=== PATIENT | male | born 1935 | race Caucasian/White ===

== ENCOUNTER → 2017-08-30 | Outpatient (CLI) | payer MEDICARE, BC ==
[~2017-08-30] MED LIST: ATEN25TA PO; B-122000 PO; BENA40TA PO; ECASA81 PO; FIBE500T PO; MULT10CA PO; VITA100064 PO
[2017-08-30 10:35] LABS: HEMATOCRIT 40.7 % (39.0-51.0); HEMOGLOBIN 13.8 GM/DL (13.0-17.0); MEAN CELL VOLUME 95.3 FL (80.0-100.0); MEAN CORPUSCULAR HEMOGLOBIN 32.3 PG (27.0-34.0); MEAN CORPUSCULAR HGB CONC 33.9 % (32.0-36.0); MEAN PLATELET VOLUME 8.8 FL (7.0-11.0); PLATELET COUNT 174 TH/MM3 (150-450); RED BLOOD COUNT 4.27 MIL/MM3 (4.50-5.90); RED CELL DISTRIBUTION WIDTH 13.8 % (11.6-17.2); WHITE BLOOD COUNT 4.3 TH/MM3 (4.0-11.0)
[2017-08-30 10:44] LABS: PROTHROMBIN TIME - PATIENT 10.4 SEC (9.8-11.6)
[2017-08-30 10:48] LABS: BACTERIA, URINE OCC /hpf; BILIRUBIN, URINE NEG (NEG); BLOOD, URINE NEG (NEG); GLUCOSE,URINE NEG (NEG); HYALINE CAST, URINE 8 /lpf (RARE); KETONE, URINE TRACE mg/dL (NEG); MUCUS URINE FEW /lpf (OCC); NITRITE,URINE NEG (NEG); URINE COLOR YELLOW (YELLW/STRAW); URINE LEUKOCYTE ESTERASE SMALL (NEG)
[2017-08-30 11:33] LABS: BICARBONATE 27.4 MEQ/L (21.0-32.0); CREATININE 1.01 MG/DL (0.60-1.30)
--- NOTE | 2017-08-30 19:10 | EKG ---
Date Performed: 08/30/2017 Time Performed: 09:24:05 PTAGE: 82 years EKG: THE UNDERLYING RHYTHM IS DIFFICULT TO DISCERN, SUSPECT UNDERLYING ATRIAL FIBRILLATION WITH EITHER A JUNCTIONAL ESCAPE RHYTHM WITH A LEFT BUNDLE BRANCH BLOCK OR A VENTRICULAR PACED RHYTHM THERE IS NO PRIOR TRACING TO COMPARE WITH Clinical correlation is recommended ABNORMAL ECG NO PREVIOUS TRACING DOCTOR: Eugene Rivas Interpretating Date/Time 08/30/2017 19:09:47
== END ==
LOC: CPRE 08:57
PROVIDERS: ATTEND Orthopaedic Surgery
DX: Z01.812 Encounter for preprocedural laboratory examination (principal); Z01.810 Encounter for preprocedural cardiovascular examination; M17.12 Unilateral primary osteoarthritis, left knee; M21.062 Valgus deformity, not elsewhere classified, left knee; M79.609 Pain in unspecified limb; I10 Essential (primary) hypertension; R94.31 Abnormal electrocardiogram [ECG] [EKG]
CPT/HCPCS: 36415; 80048; 81001; 85027; 85610; 85730; 93005

== ENCOUNTER 2017-09-17 07:28 | Inpatient (IN) | payer MEDICARE, BC ==
[~2017-09-17] VITALS: Ht 179.1 cm; Wt 107.9 kg
[2017-09-17] MEDS ORDERED: EXPAREL PERI-ARTICULAR INJECTION (TOTAL VOL. 100 ML) P-ARTICULR SCH ×2 (08:15)
[2017-09-17] MEDS ORDERED: CHLORHEXIDINE GLUCONATE 2 % 1 PACK (2 CLOTHS) TOPICAL PRN (08:15)
[2017-09-17] MEDS ORDERED: TRANEXAMIC ACID IV SCH ×2 (08:15→12:00)
[2017-09-17] MEDS ORDERED: LACTATED RINGER'S 1000 ML IV PRN (08:15)
[2017-09-17] MEDS ORDERED: ceFAZolin 2 GM PREMIX 50 ML IV SCH (08:15)
[2017-09-17] MEDS ORDERED: SODIUM CHLORIDE 0.9% IV SCH ×2 (08:15→12:00)
[2017-09-17] MEDS ORDERED: CHLORHEXIDINE GLUCONATE 4% SOLN 120 ML BTL TOPICAL SCH (08:15)
[2017-09-17] MEDS ORDERED: INSULIN HUMAN REGULAR 1,000 UNITS/10 ML VIAL SQ PRN (08:15)
[2017-09-17] MEDS ORDERED: SODIUM CHLORID 0.9% 500 ML IV PRN (08:15)
[2017-09-17] MEDS ORDERED: POVIDONE IODINE 5% (ANTISEPSIS KIT) 4 APPLICATIONS EACH NARE PRN (08:15)
[2017-09-17] MEDS ORDERED: METOPROLOL TARTRATE 25 MG TAB PO PRN (08:15)
[2017-09-17 08:21] VITALS: BP 146/69; RESP 20; TEMP 97.6; O2SAT 99
[2017-09-17 09:58] VITALS: PULSE 52
== END 2017-09-17 10:50 | disposition home or self-care (01) | DRG 554 ==
LOC: HSDI 07:28
PROVIDERS: ADMIT Orthopaedic Surgery; ATTEND Orthopaedic Surgery
DX: M19.90 Unspecified osteoarthritis, unspecified site (principal); I10 Essential (primary) hypertension; Z53.9 Procedure and treatment not carried out, unspecified reason; H91.90 Unspecified hearing loss, unspecified ear; F10.10 Alcohol abuse, uncomplicated; Z87.891 Personal history of nicotine dependence; Z85.828 Personal history of other malignant neoplasm of skin
CPT/HCPCS: 86850; 86900; 86901; 99211; G0463; J7120

== ENCOUNTER 2017-10-08 05:34 | Inpatient (IN) | payer MEDICARE, BC ==
[~2017-10-08] VITALS: Ht 180.3 cm; Wt 108.2 kg
[2017-10-08] MEDS: ATENOLOL 25 MG TAB PO SCH (04:30)
[2017-10-08] MEDS ORDERED: GENTAMICIN SULFATE 80 MG/2 ML VIAL ONE (05:58)
[2017-10-08] MEDS ORDERED: METOPROLOL TARTRATE 25 MG TAB PO PRN (06:00)
[2017-10-08] MEDS ORDERED: LACTATED RINGER'S 1000 ML IV PRN (06:00)
[2017-10-08] MEDS ORDERED: ceFAZolin 2 GM PREMIX 50 ML IV SCH (06:00)
[2017-10-08] MEDS ORDERED: CHLORHEXIDINE GLUCONATE 4% SOLN 120 ML BTL TOPICAL SCH (06:00)
[2017-10-08] MEDS ORDERED: CHLORHEXIDINE GLUCONATE 2 % 1 PACK (2 CLOTHS) TOPICAL PRN (06:00)
[2017-10-08] MEDS ORDERED: SODIUM CHLORID 0.9% 500 ML IV PRN (06:00)
[2017-10-08] MEDS ORDERED: POVIDONE IODINE 5% (ANTISEPSIS KIT) 4 APPLICATIONS EACH NARE PRN (06:00)
[2017-10-08] MEDS ORDERED: MIDAZOLAM HCL 2 MG/2 ML VIAL ONE ×2 (06:22→06:38)
[2017-10-08] MEDS ORDERED: ACETAMINOPHEN 1000 MG/100 ML 100 ML IV ONE (06:22)
[2017-10-08] MEDS ORDERED: fentaNYL CITRATE 250 MCG/5 ML AMP ONE (06:22)
[2017-10-08] MEDS ORDERED: FAMOTIDINE 20 MG/2 ML VIAL ONE ×2 (06:23→06:38)
[2017-10-08 06:27] LABS: AUTOMATED NEUTROPHIL # 2.3 TH/MM3 (1.8-7.7); BASOPHIL % 0.9 % (0.0-2.0); EOSINOPHIL # 0.2 TH/MM3 (0-0.4); EOSINOPHIL % 3.6 % (0.0-4.0); HEMATOCRIT 39.8 % (39.0-51.0); HEMOGLOBIN 13.6 GM/DL (13.0-17.0); LYMPH % 35.3 % (9.0-44.0); LYMPHOCYTE # 1.7 TH/MM3 (1.0-4.8); MEAN CELL VOLUME 97.4 FL (80.0-100.0); MEAN CORPUSCULAR HEMOGLOBIN 33.1 PG (27.0-34.0); MEAN PLATELET VOLUME 8.3 FL (7.0-11.0); MONO % 10.9 % (0.0-8.0); MONOCYTE # 0.5 TH/MM3 (0-0.9); NEUT % 49.3 % (16.0-70.0); PLATELET COUNT 185 TH/MM3 (150-450); RED BLOOD COUNT 4.09 MIL/MM3 (4.50-5.90); RED CELL DISTRIBUTION WIDTH 14.3 % (11.6-17.2); WHITE BLOOD COUNT 4.7 TH/MM3 (4.0-11.0)
[2017-10-08 06:27] LABS: BILIRUBIN, URINE NEG (NEG); BLOOD, URINE NEG (NEG); GLUCOSE,URINE NEG (NEG); KETONE, URINE NEG (NEG); NITRITE,URINE NEG (NEG); PH, URINE 5.5 (5.0-8.5); URINE COLOR YELLOW (YELLW/STRAW); URINE LEUKOCYTE ESTERASE MOD (NEG)
[2017-10-08] MEDS ORDERED: TETRACAINE PF 1% INJ 2 ML AMP ONE (06:32)
[2017-10-08] MEDS ORDERED: GENTAMICIN 80 MG PREMIX 100 ML ONE (06:37)
[2017-10-08] MEDS ORDERED: PROPOFOL 500 MG/50 ML INJ 50 ML ONE (06:44)
[2017-10-08] MEDS ORDERED: FAMOTIDINE 20 MG/2 ML VIAL IV ONE (06:45)
[2017-10-08] MEDS ORDERED: MIDAZOLAM HCL 2 MG/2 ML VIAL IV ONE (06:45)
[2017-10-08] MEDS ORDERED: GENTAMICIN/SOD CHL 80 MG/100 ML IV ONE (06:45)
[2017-10-08] MEDS: LACTATED RINGER'S 1000 ML INJ 1,000 ML IV SCH ×2 (06:57→20:18)
[2017-10-08] MEDS ORDERED: TRANEXAMIC ACID INJ 0 MG in SODIUM CHLORIDE 0.9% INJ 100 ML IV SCH (07:00)
[2017-10-08] MEDS ORDERED: ACETAMINOPHEN/HYDROcodone 325 MG/7.5 MG TAB PO PRN (07:00)
[2017-10-08] MEDS ORDERED: MORPHINE SULFATE 2 MG/ML INJ IV PUSH PRN (07:00)
[2017-10-08] MEDS ORDERED: EXPAREL PERI-ARTICULAR INJECTION (TOTAL VOL. 100 ML) P-ARTICULR SCH ×2 (07:00)
[2017-10-08] MEDS ORDERED: ONDANSETRON HCL 4 MG/2 ML VIAL IVP PRN (07:00)
[2017-10-08] MEDS ORDERED: ZOLPIDEM TARTRATE 5 MG TAB PO PRN (07:00)
[2017-10-08] MEDS ORDERED: METHYLCELLULOSE PO PRN (07:00)
[2017-10-08] MEDS ORDERED: MAGNESIUM HYDROXIDE SUSP 30 ML CUP PO PRN (07:00)
[2017-10-08] MEDS ORDERED: ECASA81 PO (07:01)
--- NOTE | 2017-10-08 07:05 | HHI.FF ---
Face to Face Verification Diagnosis: (1) Status post total left knee replacement Physical Therapy Gait training Knee: Total knee, Protocol: Left, Gait training, Full weight bearing Left LE Weight Bearing: WB as tolerated Left LE Range of Motion: Active ROM (AROM, AAROM, PROM. ROM goal is 0-135. Range of motion in the operating room was 0 extension to 145 of flexion.) Nursing Nursing: Dressing changes Dressing Changes: Daily dressing change, Coverderm/Primapore Additional Instructions Dressing changes begin on postop day 7. Remove steristrips on postop day 14. I have seen patient Hiram Jo on 10/08/17. My clinical findings support the need for the requested home health care services because: Ltd mobility - disease progression Limited ability to care for self High risk of falls I certify that my clinical findings support that this patient is homebound because: Post-op weakness Unsteady gait/balance Unsafe to leave home unassisted Alexandr Cisneros MD ([place]) Oct 08, 2017 07:05
[2017-10-08] MEDS: TRANEXAMIC ACID INJ 1,082 MG in SODIUM CHLORIDE 0.9% INJ 100 ML IV SCH ×2 (07:47→07:48)
[2017-10-08] MEDS: CHOLECALCIFEROL (VIT D3) 1000 UNIT TAB PO SCH (09:00)
[2017-10-08] MEDS: CYANOCOBALAMIN 1,000 MCG TAB PO SCH (09:00)
[2017-10-08] MEDS ORDERED: [UNRECOGNIZED DRUG - OTHER] PO SCH (09:00)
--- NOTE | 2017-10-08 09:02 | PD.OP ---
Operative Report Date of Surgery: Oct 08, 2017 Preoperative Diagnosis: (1) Primary osteoarthritis of left knee Postoperative Diagnosis: (1) Primary osteoarthritis of left knee Procedure: Left total knee arthroplasty with [place] Triathlon prosthesis (uncemented) Anesthesia: Spinal with supplemental adductor canal block regional and local with bupivacaine liposomal Surgeon: Jono Cisneros M.D. Documentation Improvement Specialist(s): DENZEL Santiago Operation and Findings: Indications and Findings: This 82-year-old man has had long-standing arthritis in his left knee nonresponsive to conservative measures as detailed in the history and physical examination. He has limited ambulation tolerance. He has crepitation on range of motion. He has a genu valgum deformity. X-rays show loss of articular cartilage to bone on bone in the lateral compartment with osteophytes medially, laterally and in the patellofemoral compartment. Operative findings: There was severe osteoarthritis in the left knee with loss of articular cartilage to exposed subchondral bone with subchondral sclerosis on the lateral side with osteophytes medially, laterally and in the patellofemoral compartment. There was also some exposed subchondral bone in the medial compartment. The prosthesis used was a [place]ell Triathlon prosthesis. The femur was a size 7, cruciate retaining, uncemented. The tibial baseplate was a size 8 Tritanium with a 9 mm X3 polyethylene cruciate retaining spacer. The patella was a size 38 mm asymmetric Tritanium backed. The patient was brought to the clean-air operating suite after an adductor canal block regional had been performed. A spinal anesthetic was administered. The position was supine with a small bolster under the hip on the operative side. A pneumatic tourniquet was applied to the upper thigh. The lower extremity was then prepped with alcohol, Hibiclens and ChloraPrep and draped in the usual manner with the knee draped free. An appropriate timeout procedure was carried out. An incision was made from about 3 fingerbreadths above the superior medial pole of patella down the tibial tubercle on the medial side. The incision was deepened through the subcutaneous tissue to the retinacular structures which were exposed medially and laterally. A medial retinacular incision was then made from the superior middle pole of patella down the tibial tubercle and up into the quadriceps tendon splitting it longitudinally and the medial one third. The patella was reflected. The infrapatellar fat pad was debulked. The anterior cruciate ligament was excised. Medial and lateral meniscectomies were initiated. A fenestration was made in the distal femur for the intramedullary referencing guide. A fenestration was made in the proximal tibia for the intramedullary referencing guide. The distal femoral cutting guide and jig were then assembled for a 5, 8 mm cut. When this was in position, the cutting block was stabilized with pins. The jig was removed. The distal femoral cut was then completed with the oscillating saw. The sizing guide was then positioned in place along Whitesides line and the epicondylar axis and stabilized with pins. The femoral size was then determined with the sizing guide. The 4-in-1 cutting block was then positioned in place. Anterior and posterior cuts were made followed by posterior and anterior chamfer cuts taking care to prevent injury to ligamentous structures. Osteophytes were then trimmed from the distal femur. A bone plug was then placed into the fenestration of the distal femur. The proximal tibia was then exposed. The medial and lateral meniscectomies were completed. The proximal tibial cutting guide was then positioned in place and stabilized with a pin for rotation. The depth of cut was then verified with a stylus referencing from the predetermined side. The cutting block was stabilized with pins. The jig was removed. The depth of cut was then verified and adjusted appropriately with the use of the spacer block. The proximal tibial cut was then made with the oscillating saw taking care to prevent injury to neurovascular and ligamentous structures. Proximal tibial bone was removed. Local anesthetic was administered with Exparel in the posterior capsule. The tibial baseplate trial was then positioned in place. After verifying the appropriate size, the base plate trial was positioned in place along with its spacer. The trial femoral component was then impacted into place. The alignment was checked. The trial tibial baseplate was then pinned in place on the tibia. Attention was directed to the patella. The patella drill guide was positioned in place for the appropriate sized patella. Patellar drilling was then carried out. The trial patella was positioned in place. A lateral release was carried out from within the knee. This centralized the patella. The knee was taken through a range of motion which was easily 0 extension to 145. The patella trial was removed. The femoral drill holes were made. The femoral trial prosthesis was removed. The tibial spacer was removed. A bone plug was placed into the proximal tibia. The tibial punch was impacted through the proximal tibial punch guide. This was all removed followed by placement of the tibial drill guide. The tibial drill holes were then made. The guide was removed. The cut ends of bone were then cleaned with pulse lavage. The tibial baseplate was then impacted into place and seated appropriately. The spacer was inserted. The the femoral component was then impacted into place and seated appropriately. The patella component was then seated with the patellar vice and tightened appropriately. The knee was taken through a range of motion which was comparable to the previous range of motion with excellent stability in flexion and extension and appropriate patellofemoral tracking. The remainder of the Exparel was then injected throughout the knee as a local anesthetic. Drains were brought out the superior lateral aspect of the suprapatellar pouch. Wound closure then commenced using 0 Vicryl interrupted [id number] sutures for the capsular and fascial structures, 2-0 Vicryl interrupted simple sutures with buried knots for the subcutaneous tissues and 4- 0 Monocryl, tenuous subcuticular closure for the skin. The wound was then dressed with Steri-Strips followed by Optifoam silver impregnated dressing. Sterile soft roll with a cooling pad and Juan bandage from the base of the toes to mid thigh were then applied. Patient was then transferred from the operating room to the recovery room in satisfactory condition having tolerated procedure well. Counts are correct. Specimens: None. Estimated blood loss: 350 mL Alexandr Cisneros MD ([place]) Oct 08, 2017 09:02
[2017-10-08] MEDS ORDERED: HYDR-3580 PO (09:13)
[2017-10-08] MEDS ORDERED: Post-op Orders (for Pharmacy) XX ONE (09:30)
[2017-10-08] MEDS ORDERED: DO NOT ADM ANY ANTICOAGULANT DRUGS PRN (09:30)
[2017-10-08] MEDS ORDERED: TRANEXAMIC ACID INJ 1,082 MG in SODIUM CHLORIDE 0.9% INJ 100 ML IV SCH (10:00)
[2017-10-08] MEDS: KETOROLAC TROMETHAMINE 30 MG/ML (IVP) VIAL IVP SCH ×3 (10:00→21:50)
[2017-10-08] MEDS ORDERED: *morphine SULFATE 10 MG/ML PERIprocedure ONLY ONE (10:01)
--- NOTE | 2017-10-08 10:11 | RADRPT ---
EXAM DATE/TIME: 10/08/2017 09:39 [place] COMPARISON: No previous studies available for comparison. INDICATIONS : Post op left total knee. MEDICAL HISTORY : None. SURGICAL HISTORY : None. ENCOUNTER: Initial ACUITY: 1 day PAIN SCORE: 1/10 LOCATION: Left Knee FINDINGS: Two view examination of the left knee demonstrates postoperative left total knee replacement. Drain i n the soft tissues. Normal alignment. CONCLUSION: 1. Postoperative left total knee replacement. No complications identified. Moi Das MD on October 08, 2017 at 10:08 Board Certified Radiologist. This report was verified electronically.
[2017-10-08] MEDS ORDERED: PROPOFOL 200 MG/20 ML AMP IV ONE (12:00)
[2017-10-08] MEDS ORDERED: DEXAMETHASONE SOD PHOS 4 MG/ML VIAL IV ONE (12:00)
[2017-10-08] MEDS ORDERED: ePHEDrine/NS 25 MG/5 ML SYRINGE IV ONE (12:00)
[2017-10-08] MEDS ORDERED: LIDOCAINE HCL 1% PF 5 ML SYRINGE OTHER ONE (12:00)
[2017-10-08 14:35] VITALS: BP 146/64; PULSE 82; RESP 18; TEMP 96.7; O2SAT 99
--- NOTE | 2017-10-08 15:27 | PD.CONS ---
HPI Service [facility] Hospitalists Consult Requested By Dr. Cisneros Reason for Consult Medical Management Primary Care Physician Unknown Diagnoses: (1) Hypertension (2) Primary osteoarthritis of left knee (3) Status post total left knee replacement History of Present Illness 82-year-old male with history of hypertension, remote A. fib in , osteoarthritis, macular degeneration, presents with elective left total knee arthroplasty done by orthopedic surgeon Dr. Cisneros. Hospitalists consulted for medical management. The patient is seen postoperatively with family at bedside. He is awake, alert, oriented 4. He denies any current medical complaints. Left leg currently with nerve block, therefore denies any significant pain. He is tolerating oral intake without any nausea/vomiting. Reports history of high blood pressure on benazepril. He also reports a remote history of atrial fibrillation back in , takes atenolol and baby aspirin daily. His telegraphic typewriter operator is Dr. Babb. He denies any current fevers/chills, cough , congestion, headache, lightheadedness, dizziness, chest pain, shortness of breath, abdominal pain, nausea/vomiting, or diarrhea. Last BM this morning . Review of Systems Except as stated in HPI: all other systems reviewed are Neg Past Family Social History Allergies: Coded Allergies: No Known Allergies (Unverified , 09/17/17) Past Medical History hypertension remote A. fib in osteoarthritis macular degeneration Past Surgical History Left TKA 10/08/[address] Cisneros Bilateral cataract resection with lens replacement Appendectomy Left arm fracture repair Left leg fracture repair Right carpal tunnel surgery Reported Medications Aspirin DR (Aspirin) 81 Mg Tabdr 81 Mg PO DAILY Fiber Therapy (Methylcellulose) 500 Mg Tab 2 Tab PO TID PRN Preservision Areds 2 Softgel (Vit C/E/Zn/Coppr/Lutein/Zeaxan) 250-200-40 Capsule 250 Cap PO BID Vitamin D3 (Cholecalciferol) 1,000 Unit Tab 1,000 Units PO DAILY B-12 (Cyanocobalamin) 2,000 Mcg Tab 2,000 Mcg PO DAILY Benazepril (Benazepril HCl) 40 Mg Tab 40 Mg PO HS Atenolol 25 Mg Tab 25 Mg PO DAILY Active Ordered Medications Current Medications Medications (Trade) Dose Ordered Sig/Elsy Route Start Time Stop Time Status Last Admin (Hibiclens 4% Top Soln) 1 applic ONCE TOPICAL 10/08/17 06:00 10/11/17 05:59 10/08/17 06:00 Cefazolin Sodium/ Dextrose 50 ml @ 100 mls/hr FIXED CAPITAL CLERK IV 10/08/17 06:00 10/09/17 05:59 10/08/17 07:45 Tranexamic Acid 1082 mg/Sodium Chloride 110.82 ml @ 200 mls/ hr ONCE IV 10/08/17 10:00 10/08/17 16:00 10/08/17 10:34 (Tenormin) 25 mg DAILY PO 10/08/17 09:00 10/08/17 04:30 (Vitamin D3) 1,000 units DAILY PO 10/08/17 09:00 (Vitamin B12) 2,000 mcg DAILY PO 10/08/17 09:00 (Prinivil) 40 mg HS PO 10/08/17 21:00 Lactated Ringer's 1,000 ml @ 80 mls/hr [id number] IV 10/08/17 06:57 10/08/17 06:57 Cefazolin Sodium 1000 mg/Sodium Chloride 100 ml @ 200 mls/hr Q6H IV 10/08/17 14:00 10/09/17 02:29 10/08/17 14:40 (Morphine Inj) 4 mg Q3H PRN IV PUSH 10/08/17 07:00 ([place] 7.5-325 Mg) 1 tab Q4H PRN PO 10/08/17 07:00 ([place] 7.5-325 Mg) 2 tab Q4H PRN PO 10/08/17 07:00 (Toradol Inj) 15 mg Q6H IVP 10/08/17 10:00 10/10/17 04:01 10/08/17 13:13 (Zofran Inj) 4 mg Q6H PRN IVP 10/08/17 07:00 (Colace) 100 mg BID PO 10/09/17 21:00 (Ambien) 5 mg HS PRN PO 10/08/17 07:00 (Milk Of Magnesia Liq) 30 ml DAILY PRN PO 10/08/17 07:00 (Ecotrin Ec) 81 mg BID PO 10/09/17 08:00 Miscellaneous Information ALL NURSING DEPARTME... UNSCH PRN .XX 10/08/17 09:30 10/09/17 09:29 Family History Patient was recently informed that he was adopted and therefore does not have any biological family history Social History Previously smoked tobacco, approximately one PPD or more, quit in 1980s Occasional alcohol use, has a few liquor beverages once a week Denies any illicit drug use Physical Exam Vital Signs Vital Signs Date Time Temp Pulse Resp B/P (MAP) Pulse Ox O2 Delivery O2 Flow Rate FiO2 10/08/17 14:35 96.7 82 18 146/64 (91) 99 10/08/17 13:00 98.0 54 16 128/64 (85) 99 10/08/17 11:00 53 12 135/71 (92) 98 Room Air 10/08/17 10:45 53 12 135/71 (92) 98 Room Air 10/08/17 10:30 53 12 134/64 (87) 100 Room Air 10/08/17 10:15 53 14 141/69 (93) 100 Room Air 10/08/17 10:00 50 12 140/70 (93) 100 Room Air 10/08/17 09:45 50 12 144/68 (93) 100 Simple Mask 6 10/08/17 09:30 52 12 136/65 (88) 100 Simple Mask 6 10/08/17 09:23 97.7 50 12 130/81 (97) 100 10/08/17 06:15 99 Nasal Cannula 2 10/08/17 06:13 98.0 50 20 153/77 (102) 100 Physical Exam GENERAL: Well-nourished, well-developed pleasant elderly male patient in [facility]. SKIN: Warm and dry. No rash. HEAD: Normocephalic. Atraumatic. EYES: Pupils equal and round. No scleral icterus. No injection or drainage. ENT: No nasal bleeding or discharge. Mucous membranes pink and moist. NECK: Supple. Trachea midline. CARDIOVASCULAR: Regular rate and rhythm. No murmur appreciated. RESPIRATORY: No accessory muscle use. Clear to auscultation. Breath sounds equal bilaterally. GASTROINTESTINAL: Abdomen soft, non-tender, nondistended. Normoactive bowel sounds x4. MUSCULOSKELETAL: No obvious deformities. LLE in and surgical dressing/Juan wrap , CDI. DP pulses 2+ bilaterally. NEUROLOGICAL: Awake and alert. No obvious cranial nerve deficits. Motor grossly within normal limits. Normal speech. PSYCHIATRIC: Appropriate mood and affect; insight and judgment normal. Laboratory Laboratory Tests Test 10/08/17 05:57 10/08/17 06:03 Urine Color YELLOW Urine Turbidity CLEAR Urine pH 5.5 Urine Specific K[place] 1.019 Urine Protein NEG Urine Glucose (UA) NEG Urine Ketones NEG Urine Occult Blood NEG Urine Nitrite NEG Urine Bilirubin NEG Urine Urobilinogen LESS THAN 2.0 Urine Leukocyte Esterase MOD Urine WBC 14 Microscopic Urinalysis Comment CULTURE INDICATED White Blood Count 4.7 Red Blood Count 4.09 Hemoglobin 13.6 Hematocrit 39.8 Mean Corpuscular Volume 97.4 Mean Corpuscular Hemoglobin 33.1 Mean Corpuscular Hemoglobin Concent 34.0 Red Cell Distribution Width 14.3 Platelet Count 185 Mean Platelet Volume 8.3 Neutrophils (%) (Auto) 49.3 Lymphocytes (%) (Auto) 35.3 Monocytes (%) (Auto) 10.9 Eosinophils (%) (Auto) 3.6 Basophils (%) (Auto) 0.9 Neutrophils # (Auto) 2.3 Lymphocytes # (Auto) 1.7 Monocytes # (Auto) 0.5 Eosinophils # (Auto) 0.2 Basophils # (Auto) 0.0 CBC Comment DIFF FINAL Differential Comment Date/Time Source Procedure Growth Status 10/08/17 05:57 Urine Clean Catch Urine Culture Pending Received Result Diagram: 10/08/17 0603 Imaging Last Impressions Knee X-Ray 10/08/17 0657 Signed Impressions: Service Date/Time: Sunday, October 08, 2017 09:39 - CONCLUSION: 1. Postoperative left total knee replacement. No complications identified. Moi Das MD Assessment and Plan Problem List: (1) Hypertension ICD Code: I10 - Essential (primary) hypertension (2) Primary osteoarthritis of left knee ICD Code: M17.12 - Unilateral primary osteoarthritis, left knee (3) Status post total left knee replacement ICD Code: Z96.652 - Presence of left artificial knee joint Assessment and Plan 82-year-old male with history of hypertension, remote A. fib in , osteoarthritis, macular degeneration, presents with elective left total knee arthroplasty done by orthopedic surgeon Dr. Cisneros. Hospitalists consulted for medical management. Osteoarthritis s/p Left TKA: on 10/08. Orthopedic surgeon Dr. Cisneros -continue pain control per ortho with [place] prn, IV dilaudid prn -continue IV toradol per ortho -PT/OT eval -on aspirin 81mg bid per ortho Hypertension: BP fairly well controlled -continue patient's benazepril 40mg daily (converted to lisinopril) -monitor BP, adjust antihypertensives as needed Remote Afib: patient reports remote hx of afib back in . HR well controlled. Follows with Dr. Babb as outpatient. -continue patient's atenolol and aspirin DVT Prophylaxis: per ortho, on aspirin 81mg bid Discussed Condition With Patient, Patient's Family at bedside Yoselin Santos PA-C Oct 08, 2017 3:27 pm
[2017-10-08 16:00] VITALS: BP 117/79; PULSE 80; RESP 18; TEMP 97.1; O2SAT 98
[2017-10-08 20:06] VITALS: BP 138/73; PULSE 73; RESP 18; TEMP 97.2; O2SAT 95
[2017-10-08] MEDS ORDERED: LISINOPRIL 20 MG TAB PO SCH (21:00)
[2017-10-08] MEDS: ACETAMINOPHEN/HYDROcodone 325 MG/7.5 MG TAB PO PRN (22:42)
[2017-10-09 00:38] VITALS: BP 112/59; PULSE 63; RESP 18; TEMP 96.8; O2SAT 96
[2017-10-09 04:10] VITALS: BP 112/55; PULSE 51; RESP 17; TEMP 96.9; O2SAT 93
[2017-10-09] MEDS: KETOROLAC TROMETHAMINE 30 MG/ML (IVP) VIAL IVP SCH ×2 (04:18→10:56)
--- NOTE | 2017-10-09 06:52 | PD.ORT.PN ---
Subjective Post Op Day #: 1 Subjective Remarks He is doing well. He has no pain. He has been walking in the room. He is anxious to go home. Range of Motion 0-95. Distance Walked 60 feet with physical therapy. Objective Vitals Vital Signs Date Time Temp Pulse Resp B/P (MAP) Pulse Ox O2 Delivery O2 Flow Rate FiO2 10/09/17 04:10 96.9 51 17 112/55 (74) 93 10/09/17 00:38 96.8 63 18 112/59 (76) 96 10/08/17 20:06 97.2 73 18 138/73 (94) 95 10/08/17 16:00 97.1 80 18 117/79 (92) 98 10/08/17 14:35 96.7 82 18 146/64 (91) 99 10/08/17 13:00 98.0 54 16 128/64 (85) 99 10/08/17 11:00 53 12 135/71 (92) 98 Room Air 10/08/17 10:45 53 12 135/71 (92) 98 Room Air 10/08/17 10:30 53 12 134/64 (87) 100 Room Air 10/08/17 10:15 53 14 141/69 (93) 100 Room Air 10/08/17 10:00 50 12 140/70 (93) 100 Room Air 10/08/17 09:45 50 12 144/68 (93) 100 Simple Mask 6 10/08/17 09:30 52 12 136/65 (88) 100 Simple Mask 6 10/08/17 09:23 97.7 50 12 130/81 (97) 100 I/O 10/08/17 10/08/17 10/08/17 10/09/17 10/09/17 10/09/17 07:00 15:00 23:00 07:00 15:00 23:00 Intake Total 1390 ml 1143 ml 684 ml Output Total 480 ml 120 ml 45 ml Balance 910 ml 1023 ml 639 ml Intake Oral 240 ml 360 ml IV Total 1150 ml 783 ml 684 ml Output Urine Total 0 ml Drainage Total 130 ml 120 ml 45 ml Estimated Blood Loss 350 ml # Voids 2 # Bowel Movements 0 Result Diagram: 10/08/17 0603 Imaging Last 24 hours Impressions Knee X-Ray 10/08/17 0657 Signed Impressions: Service Date/Time: Sunday, October 08, 2017 09:39 - CONCLUSION: 1. Postoperative left total knee replacement. No complications identified. Moi Das MD Objective Remarks He is resting comfortably, supine in bed. The neurovascular status is intact. The dressing is dry and intact. Assessment & Plan Ortho Post Op Day #: 1 Problem List: (1) Status post total left knee replacement ICD Codes: Z96.652 - Presence of left artificial knee joint Plan: Continue postop care and PT. Assessment and Plan Condition: Good. Orthopedically stable. DVT prophylaxis: Sequentials, JEFFERSON stockings, aspirin 81 mg twice daily. Discharge plans: Home with home health care. An appointment was scheduled through the office. Prescriptions: [place] 7.5/325 Alexandr Cisneros MD (Charles) Oct 09, 2017 06:52
[2017-10-09 06:56] LABS: HEMATOCRIT 31.3 % (39.0-51.0); HEMOGLOBIN 10.6 GM/DL (13.0-17.0)
--- NOTE | 2017-10-09 07:26 | HHI.DS ---
Discharge Summary Admission Date Oct 08, 2017 at 05:34 Discharge Date: Oct 09, 2017 Admitting Diagnosis Primary osteoarthritis, left knee. Diagnosis: (1) Status post total left knee replacement Diagnosis: Principal ICD Codes: Z96.652 - Presence of left artificial knee joint (2) Primary osteoarthritis of left knee Diagnosis: Principal ICD Codes: M17.12 - Unilateral primary osteoarthritis, left knee Status: Resolved Procedures Left total knee arthroplasty with [place] Triathlon prosthesis (uncemented). Brief History This is a 82 year old male patient has had at least 2 years of progressively worsening left knee pain that gives him trouble with stairs and limits his ambulation. It also interferes with activities of daily living. Physical findings at time of admission showed palpable osteophytes in the left knee with genu valgum and lateral laxity in the knee. There is crepitation on range of motion. X-rays prior to admission showed severe osteoarthritis with loss of joint space to [id number] in the lateral compartment, subchondral sclerosis and osteophytes. CBC/BMP: 10/09/17 0620 Significant Findings Laboratory Tests Test 10/08/17 05:57 10/08/17 06:03 10/09/17 06:20 Urine Leukocyte Esterase MOD (NEG) Urine WBC 14 /hpf (0-5) Red Blood Count 4.09 MIL/MM3 (4.50-5.90) Monocytes (%) (Auto) 10.9 % (0.0-8.0) Hemoglobin 10.6 GM/DL (13.0-17.0) Hematocrit 31.3 % (39.0-51.0) PE at Discharge He is resting comfortably, supine in bed. The neurovascular status is intact. The dressing is dry and intact. Hospital Course The patient was admitted as noted above. The above noted operative procedure was carried out that day. Preoperatively prophylactic antibiotics were administered Ancef according to protocol. These were continued postoperatively. The patient also received tranexamic acid to help with hemostasis according to protocol. In the postanesthesia care unit a continuous passive motion device was initiated. Also initiated were mechanical methods of DVT prophylaxis in the form of JEFFERSON stockings and sequentials. Physical therapy was initiated on the day of surgery. He was able to walk 60 feet and had a range of motion of 0 extension to 95 of flexion. On postoperative day #1 physical therapy continued. The use of the continuous passive motion device continued. DVT prophylaxis with aspirin 81 mg twice daily was initiated at this time. The patient continued physical therapy throughout the hospitalization. The distance walked and range of motion improved throughout the hospitalization. The patient was discharged on postoperative day 1 with the disposition being to home with home health care. An appointment for follow-up was made prior to admission. Pt Condition on Discharge: Good Discharge Disposition: Disch w/ Home Health Serv Discharge Instructions Diet Instructions: As Tolerated, No Restrictions Activities You Can Perform: Full Weight Bearing, Shower Only-No Bath Activities to Avoid: Lifting/Bending, Strenuous Activity, Bathing, Driving Follow up Referrals: Orthopedics with Alexandr Cisneros MD ([place]) New Medications: Aspirin (Aspirin ) 81 Mg Tabdr 81 MG PO BID for Prevent Blood Clot for 30 Days, #60 TAB Hydrocodone/Acetaminophen (Hydrocodone-Acetamin 7.5-325) 7.5 Mg-325 Mg Tablet 1 TAB PO Q4H PRN for PAIN LESS THAN 5 ON SCALE, #30 TAB Continued Medications: Atenolol (Atenolol) 25 Mg Tab 25 MG PO DAILY for Blood Pressure Management, #30 TAB Benazepril (Benazepril) 40 Mg Tab 40 MG PO HS for Blood Pressure Management, #30 TAB 0 Refills Cholecalciferol (Vitamin D3) 1,000 Unit Tab 1000 UNITS PO DAILY for Nutritional Supplement, #1 BOTTLE 0 Refills Cyanocobalamin (B-12) 2,000 Mcg Tab 2000 MCG PO DAILY for Nutritional Supplement, #1 BOTTLE 0 Refills Methylcellulose (Fiber Therapy) 500 Mg Tab 2 TAB PO TID PRN for Prevent Constipation, #90 TAB 0 Refills Vit C/E/Zn/Coppr/Lutein/Zeaxan (Preservision Areds 2 Softgel) 250-200-40 Capsule 250 CAP PO BID Discontinued Medications: Aspirin (Aspirin ) 81 Mg Tabdr 81 MG PO DAILY, TAB 0 Refills Alexandr Cisneros MD ([place]) Oct 09, 2017 07:26
[2017-10-09 07:56] VITALS: BP 126/63; PULSE 54; RESP 19; TEMP 97; O2SAT 97
[2017-10-09] MEDS: LACTATED RINGER'S 1000 ML INJ 1,000 ML IV SCH (07:57)
[2017-10-09] MEDS ORDERED: ASPIRIN EC 81 MG TABEC PO SCH (08:00)
[2017-10-09] MEDS: CYANOCOBALAMIN 1,000 MCG TAB PO SCH (08:07)
[2017-10-09] MEDS: ATENOLOL 25 MG TAB PO SCH (08:08)
[2017-10-09] MEDS: CHOLECALCIFEROL (VIT D3) 1000 UNIT TAB PO SCH (08:11)
--- NOTE | 2017-10-09 08:23 | HHI.PR ---
Subjective Remarks Follow up for left TKA, HTN. The patient reports feeling well today, pain well controlled. Seen ambulating to the restroom with a walker. Denies any lightheadedness, dizziness, chest pain, palpitations or shortness of breath. Discussed his abnormal urinalysis, he denies any urinary complaints including no dysuria, increased urinary frequency/urgency, or suprapubic/flank pain. Denies fevers/chills. He wants to go home. Objective Vitals Vital Signs Date Time Temp Pulse Resp B/P (MAP) Pulse Ox O2 Delivery O2 Flow Rate FiO2 10/09/17 07:56 97.0 54 19 126/63 (84) 97 10/09/17 04:10 96.9 51 17 112/55 (74) 93 10/09/17 00:38 96.8 63 18 112/59 (76) 96 10/08/17 20:06 97.2 73 18 138/73 (94) 95 10/08/17 16:00 97.1 80 18 117/79 (92) 98 10/08/17 14:35 96.7 82 18 146/64 (91) 99 10/08/17 13:00 98.0 54 16 128/64 (85) 99 10/08/17 11:00 53 12 135/71 (92) 98 Room Air 10/08/17 10:45 53 12 135/71 (92) 98 Room Air 10/08/17 10:30 53 12 134/64 (87) 100 Room Air 10/08/17 10:15 53 14 141/69 (93) 100 Room Air 10/08/17 10:00 50 12 140/70 (93) 100 Room Air 10/08/17 09:45 50 12 144/68 (93) 100 Simple Mask 6 10/08/17 09:30 52 12 136/65 (88) 100 Simple Mask 6 10/08/17 09:23 97.7 50 12 130/81 (97) 100 I/O 10/08/17 10/08/17 10/08/17 10/09/17 10/09/17 10/09/17 07:00 15:00 23:00 07:00 15:00 23:00 Intake Total 1390 ml 1143 ml 924 ml Output Total 480 ml 120 ml 45 ml Balance 910 ml 1023 ml 879 ml Intake Oral 240 ml 360 ml 240 ml IV Total 1150 ml 783 ml 684 ml Output Urine Total 0 ml Drainage Total 130 ml 120 ml 45 ml Estimated Blood Loss 350 ml # Voids 2 1 # Bowel Movements 0 0 Result Diagram: 10/09/17 0620 Imaging Last Impressions Knee X-Ray 10/08/17 0657 Signed Impressions: Service Date/Time: Sunday, October 08, 2017 09:39 - CONCLUSION: 1. Postoperative left total knee replacement. No complications identified. Moi Das MD Objective Remarks GENERAL: Well-nourished, well-developed pleasant elderly male patient in [facility]. SKIN: Warm and dry. HEENT: Normocephalic. Atraumatic. Pupils equal and round. Mucous membranes pink and moist. CARDIOVASCULAR: Regular rate and rhythm. No murmur appreciated. RESPIRATORY: No accessory muscle use. Clear to auscultation. Breath sounds equal bilaterally. GASTROINTESTINAL: Abdomen soft, non-tender, nondistended. Normoactive bowel sounds x4. MUSCULOSKELETAL: No obvious deformities. LLE in surgical dressing/Juan wrap, CDI , hemovac in place. DP pulses 2+ bilaterally. NEUROLOGICAL: Awake and alert. No obvious cranial nerve deficits. Motor grossly within normal limits. Normal speech. PSYCHIATRIC: Appropriate mood and affect; insight and judgment normal. Procedures s/p Left TKA on 10/08. Orthopedic surgeon Dr. Cisneros Medications and IVs Current Medications Medications (Trade) Dose Ordered Sig/Elsy Route Start Time Stop Time Status Last Admin (Hibiclens 4% Top Soln) 1 applic ONCE TOPICAL 10/08/17 06:00 10/11/17 05:59 10/08/17 06:00 (Tenormin) 25 mg DAILY PO 10/08/17 09:00 10/09/17 08:08 (Vitamin D3) 1,000 units DAILY PO 10/08/17 09:00 10/09/17 08:11 (Vitamin B12) 2,000 mcg DAILY PO 10/08/17 09:00 10/09/17 08:07 (Prinivil) 40 mg HS PO 10/08/17 21:00 10/08/17 20:23 Lactated Ringer's 1,000 ml @ 80 mls/hr [id number] IV 10/08/17 06:57 10/08/17 20:18 (Morphine Inj) 4 mg Q3H PRN IV PUSH 10/08/17 07:00 ([place] 7.5-325 Mg) 1 tab Q4H PRN PO 10/08/17 07:00 10/08/17 22:42 ([place] 7.5-325 Mg) 2 tab Q4H PRN PO 10/08/17 07:00 (Toradol Inj) 15 mg Q6H IVP 10/08/17 10:00 10/10/17 04:01 10/09/17 04:18 (Zofran Inj) 4 mg Q6H PRN IVP 10/08/17 07:00 (Colace) 100 mg BID PO 10/09/17 21:00 (Ambien) 5 mg HS PRN PO 10/08/17 07:00 (Milk Of Magnesia Liq) 30 ml DAILY PRN PO 10/08/17 07:00 (Ecotrin Ec) 81 mg BID PO 10/09/17 08:00 10/09/17 08:07 Miscellaneous Information ALL NURSING DEPARTME... UNSCH PRN .XX 10/08/17 09:30 10/09/17 09:29 A/P Problem List: (1) Hypertension ICD Code: I10 - Essential (primary) hypertension (2) Primary osteoarthritis of left knee ICD Code: M17.12 - Unilateral primary osteoarthritis, left knee Status: Resolved (3) Status post total left knee replacement ICD Code: Z96.652 - Presence of left artificial knee joint Assessment and Plan 82-year-old male with history of hypertension, remote A. fib in , osteoarthritis, macular degeneration, presents with elective left total knee arthroplasty done by orthopedic surgeon Dr. Cisneros. Hospitalists consulted for medical management. Osteoarthritis s/p Left TKA: on 10/08. Orthopedic surgeon Dr. Cisneros -continue pain control per ortho with [place] prn, IV dilaudid prn -continue IV toradol per ortho -PT/OT eval, recommends [facility] -on aspirin 81mg bid per ortho -cleared for discharge by orthopedics Hypertension: BP fairly well controlled -continue patient's benazepril 40mg daily (converted to lisinopril) -monitor BP, adjust antihypertensives as needed Remote Afib: patient reports remote hx of afib back in . HR well controlled. Follows with Dr. Babb as outpatient. -continue patient's atenolol and aspirin -outpatient follow up with blue prints trimmer Dr. Babb DVT Prophylaxis: per ortho, on aspirin 81mg bid Discharge Planning Discharge patient to home Condition on discharge: Improved Heart Healthy Diet as tolerated Ad Nathaly activity, WBAT Rx written: aspirin 81mg bid [id number], [place] 7.5/325mg q4h prn pain #30 Follow-up with primary care physician Dr. Sarabia in 1 week Follow up with orthopedics Yoselin Day PA-C Oct 09, 2017 8:23 am
[2017-10-09] MEDS: ACETAMINOPHEN/HYDROcodone 325 MG/7.5 MG TAB PO PRN (10:55)
[2017-10-09 11:43] VITALS: BP 128/62; PULSE 53; RESP 19; TEMP 95.5; O2SAT 98
[2017-10-09] MEDS ORDERED: DOCUSATE SODIUM 100 MG CAP PO SCH (21:00)
== END 2017-10-09 14:08 | disposition home health service (06) | DRG 470 ==
LOC: HSDI 05:34 → N06A 13:32
PROVIDERS: ADMIT Orthopaedic Surgery; ATTEND Orthopaedic Surgery
PROC: 3E0T3BZ Introduction of Anesthetic Agent into Peripheral Nerves and Plexi, Percutaneous Approach (ICD-10-PCS; 2017-10-08)
PROC: 0SRD0JA Replacement of Left Knee Joint with Synthetic Substitute, Uncemented, Open Approach (ICD-10-PCS; principal; 2017-10-08 06:58)
DX: M17.12 Unilateral primary osteoarthritis, left knee (principal); I48.91 Unspecified atrial fibrillation; I10 Essential (primary) hypertension; M21.062 Valgus deformity, not elsewhere classified, left knee; H35.30 Unspecified macular degeneration; Z79.82 Long term (current) use of aspirin; Z87.891 Personal history of nicotine dependence
CPT/HCPCS: 73560; 81001; 85014; 85018; 85025; 86850; 86900; 86901; 87086; 94150; C1776; C9290; J0131; J0690; J1100; J1580; J1885; J2250; J2270; J3010; J7120